=== PATIENT | female | born 1960 | race Caucasian/White ===

== ENCOUNTER 2017-10-28 21:32 | Emergency (ER) | payer BC, OTHER ==
[~2017-10-28] VITALS: Ht 160 cm; Wt 108.2 kg
[2017-10-28] MEDS ORDERED: AMOX500C2 PO (22:00)
[2017-10-28] MEDS ORDERED: ALBUTEROL SULFATE 2.5 MG/0.5 ML NEB SOLUTION NEB ONE (23:45)
[2017-10-28] MEDS ORDERED: IPRATROPIUM BROMIDE 0.5 MG/2.5 ML NEB SOLUTION NEB ONE (23:45)
[2017-10-29 01:35] VITALS: BP 144/87
== END 2017-10-29 02:19 | disposition home or self-care (01) ==
LOC: EMS 21:33
DX: J40 Bronchitis, not specified as acute or chronic (principal); F11.10 Opioid abuse, uncomplicated; Z90.49 Acquired absence of other specified parts of digestive tract
CPT/HCPCS: 71046; 94640; 99284; J7613